=== PATIENT | female | born 1985 | race African-American/Black ===

== ENCOUNTER 2024-10-29 18:11 | Emergency (ER) | payer OTHER ==
[~2024-10-29] VITALS: Ht 160 cm; Wt 88.0 kg
[2024-10-29 18:29] VITALS: O2SAT 99
[2024-10-29 22:53] LABS: BASOPHILS % 0.2 % (0.0-2.0); EOSINOPHILS % 1.5 % (0.0-5.0); HEMATOCRIT. 37.2 % (36.0-48.0); HEMOGLOBIN. 12.6 g/dL (12.0-16.0); LYMPHOCYTES % 29.9 % (20.0-50.0); MEAN CORPUSCULAR HEMOGLOBIN 30.4 pg (28.0-32.0); MEAN CORPUSCULAR HGB CONC 33.8 g/dL (31.0-37.0); MEAN CORPUSCULAR VOLUME 89.9 fL (81.0-99.0); MONOCYTES % 9.5 % (2.0-8.0); NEUTROPHILS % 58.9 % (40.0-76.0); RED BLOOD CELL COUNT 4.14 mill/uL (4.2-5.4); RED CELL DISTRIBUTION WIDTH 12.8 % (11.6-14.6); WHITE BLOOD COUNT 5.2 x1000/uL (4.5-11.0)
[2024-10-29 22:55] LABS: DIFFERENTIAL COMMENT 1
[2024-10-29 22:56] LABS: CHLORIDE 108 mEq/L (98-107); POTASSIUM 3.8 mEq/L (3.5-5.1); SODIUM 141 mEq/L (136-145)
[2024-10-29 22:57] LABS: CLARITY URINE CLEAR (CLEAR); COLOR URINE YELLOW (YELLOW)
[2024-10-29 22:57] LABS: CARBON DIOXIDE 25 mEq/L (21-32)
[2024-10-29 22:58] LABS: CALCIUM 9.3 mg/dL (8.7-10.4)
[2024-10-29 22:58] LABS: GLUCOSE URINE NEGATIVE (NEGATIVE); KETONES URINE NEGATIVE (NEGATIVE); LEUKOCYTE ESTERASE URINE 1+ (NEGATIVE); NITRITE URINE NEGATIVE (NEGATIVE); OCCULT BLOOD URINE TRACE (NEGATIVE); PH URINE 6.5 (4.5-8.0); PROTEIN URINE NEGATIVE (NEGATIVE); SPECIFIC GRAVITY URINE 1.012 (1.005-1.030)
[2024-10-29 23:02] LABS: CREATININE 0.8 mg/dL (0.6-1.0); GLUCOSE 102 mg/dL (70-105); UREA NITROGEN BLOOD 6 mg/dL (9-23)
[2024-10-29 23:04] LABS: ALANINE AMINOTRANSFERASE 22 IU/L (10-49); ALBUMIN 4.4 g/dL (3.2-4.8); ASPARTATE AMINOTRANSFERASE 28 IU/L (<34)
[2024-10-29 23:05] LABS: BILIRUBIN TOTAL 0.5 mg/dL (0.1-1.0); PROTEIN TOTAL 8.1 g/dL (6.0-8.3)
[2024-10-29 23:15] LABS: HCG SCREEN NEGATIVE
[2024-10-29 23:36] LABS: BACTERIA URINE 2+; RBC URINE 0-2 /hpf (0-2); SQUAMOUS EPITHELIAL CELL URINE FEW /lpf (RARE/1+)
[2024-10-30] MEDS ORDERED: IBUP-2029 MT (00:03)
[2024-10-30] MEDS ORDERED: CEPH500C2 MT (00:03)
[2024-10-30 00:22] VITALS: BP 131/80; PULSE 79; RESP 20; TEMP 36.61404; O2SAT 98
[2024-10-30 00:44] LABS: PLATELET 231 x1000/uL (130-400)
[2024-10-30 00:45] LABS: MEAN PLATELET VOLUME 10.7 fl (7.4-10.4)
== END 2024-10-30 00:27 | disposition home or self-care (01) ==
LOC: ER 18:11
DX: R59.1 Generalized enlarged lymph nodes (principal); N39.0 Urinary tract infection, site not specified
CPT/HCPCS: 36415; 80053; 81003; 81025; 84703; 85025; 93971; 99284